=== PATIENT | male | born 1965 | race Caucasian/White ===

== ENCOUNTER 2016-08-18 20:33 | Emergency (ER) | payer MEDICAID ==
[2016-08-18 20:59] VITALS: BP 134/83
--- NOTE | 2016-08-18 22:27 | EDM.PDOC ---
[id number] SURGERY 08/09/16 Time Seen by Provider: 08/18/16 22:05 Source of Information: Reports: Patient, Family History Limitations: Reports: No limitations - History of Present Illness INITIAL COMMENTS - FREE TEXT/NARRATIVE: 50-year-old male who is in to check on some postoperative leakage of his incision. It's been occurring for the last 12 hours, serosanguineous and nontender. He is running a low-grade fever although he has no chills. He also had a recurrence of a small pustule on his perineum that recently drained and he has a history of these recurring. Onset: gradual Severity: mild Associated Symptoms: Reports: fever/chills. Denies: cough, nausea/vomiting, shortness of breath - Related Data Allergies Allergy/AdvReac Type Severity Reaction Status Date / Time codeine Allergy Seizure Verified 08/18/16 21:49 [From Tylenol-Codeine #3] Home Meds: Home Meds Amoxicillin/Clavulanate K [Augmentin 875 MG] 1 tab PO BID #20 tablet 02/01/16 [ Rx] HYDROmorphone [Dilaudid] 2 - 4 mg PO Q4H PRN #50 tablet 02/01/16 [Rx] Lactobacillus Rhamnosus GG [Culturelle] 1 cap PO BID cap 02/01/16 [Rx] Docusate Sodium [Colace] 100 mg PO DAILY 08/18/16 [History] Past Medical History Musculoskeletal History: Reports: Fracture Other Musculoskeletal History: right arm collar bone ribs Dermatologic History: Reports: Psoriasis - Infectious Disease History Infectious Disease History: Reports: Chicken pox - Past Surgical History GI Surgical History: Reports: Colostomy Social & Family History - Family History Family Medical History: Noncontributory - Tobacco Use Smoking Status *Q: Current Every Day Smoker Years of Tobacco use: 38 Packs/Tins Daily: 0.5 Second Hand Smoke Exposure: Yes - Caffeine Use Caffeine Use: Reports: Coffee, Energy drinks, Soda, Tea - Alcohol Use Days Per Week of Alcohol Use: 2 Number of Drinks Per Day: 2 Total Drinks Per Week: 4 - Recreational Drug Use Recreational Drug Use: No - Living Situation & Occupation Living situation: Reports: with significant other Occupation: employed (lives in [facility], works construction, 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[place].) ED ROS GENERAL - Review of Systems Review Of Systems: See Below Constitutional: Reports: fever (Measurement only, no symptoms) Respiratory: Reports: No Symptoms Cardiovascular: Reports: No symptoms GI/Abdominal: Denies: Abdominal pain Skin: Reports: other (Incision is healing nicely) ED EXAM, GENERAL - Physical Exam Exam: See Below Exam Limited By: No limitations General Appearance: alert, no apparent distress Respiratory/Chest: no respiratory distress, lungs clear Cardiovascular: regular rate, rhythm GI/Abdominal: other (A very small opening in the middle of the incision has some clear drainage. There is some slight erythema but no tenderness to palpation.) Course - Vital Signs Last Recorded V/S: Last Vital Signs Temp 99.9 F 08/18/16 20:57 Pulse 91 08/18/16 20:57 Resp 16 08/18/16 20:57 BP 134/83 08/18/16 20:57 Pulse Ox 93 L 08/18/16 20:57 - Re-Assessments/Exams Free Text/Narrative Re-Assessment/Exam: 08/18/16 22:25 Patient likely has a seroma draining, but with his recent small pustule in the perineum and his propensity to infection he'll be placed on Augmentin 875 twice daily until his recheck next week. He can return sooner if worsening or concerns. Departure - Departure Time of Disposition: 22:50 Disposition: Home, Self-Care 01 Condition: good Clinical Impression: Postoperative seroma of skin Qualifiers: Procedure type: non-dermatologic Qualified Code(s): L76.34 - Postprocedural seroma of skin and subcutaneous tissue following other procedure Instructions: Seroma Referrals: Ishaan Hernandez MD [Primary Care Provider] - Forms: ED Department Discharge Care Plan Goals: Take Augmentin 875 mg twice daily with food as directed. Return if worsening such as increased pain, fever, or purulent drainage from your incision. Otherwise recheck next week as scheduled.
== END 2016-08-18 22:49 | disposition home or self-care (01) ==
LOC: JP.ED 20:33
DX: L76.34 Postprocedural seroma of skin and subcutaneous tissue following other procedure (principal); F17.210 Nicotine dependence, cigarettes, uncomplicated; Z79.899 Other long term (current) drug therapy; Z88.5 Allergy status to narcotic agent
CPT/HCPCS: 99283

== ENCOUNTER 2017-02-25 14:32 | Emergency (ER) | payer MEDICAID ==
[2017-02-25 14:45] VITALS: BP 155/95
--- NOTE | 2017-02-25 15:09 | EDM.PDOC ---
ED HPI GENERAL MEDICAL PROBLEM - General Chief Complaint: Skin Complaint Stated Complaint: BOIL Time Seen by Provider: 02/25/17 14:52 Source of Information: Reports: Patient, RN Notes Reviewed History Limitations: Reports: No Limitations - History of Present Illness INITIAL COMMENTS - FREE TEXT/NARRATIVE: 51-year-old gentleman presents emergency department day for evaluation of his hidradenitis, he is not had any fevers he has his usual flareups axilla and groin Right Lower Pelvic Pain Score (Numeric/FACES): 6 - Related Data Allergies Allergy/AdvReac Type Severity Reaction Status Date / Time codeine Allergy Seizure Verified 08/18/16 21:49 [From Tylenol-Codeine #3] Past Medical History Cardiovascular History: Reports: Heart Murmur Musculoskeletal History: Reports: Fracture Other Musculoskeletal History: right arm collar bone ribs Neurological History: Reports: Head Trauma Dermatologic History: Reports: Cellulitis, Psoriasis, Other (See Below) ( Hidradenitis) - Infectious Disease History Infectious Disease History: Reports: Chicken Pox - Past Surgical History GI Surgical History: Reports: Colostomy Dermatological Surgical History: Reports: Other (See Below) Social & Family History - Family History Family Medical History: Noncontributory - Tobacco Use Smoking Status *Q: Current Every Day Smoker Years of Tobacco use: 12 Packs/Tins Daily: 1 Second Hand Smoke Exposure: Yes - Caffeine Use Caffeine Use: Reports: Coffee, Soda - Alcohol Use Days Per Week of Alcohol Use: 2 Number of Drinks Per Day: 2 Total Drinks Per Week: 4 - Recreational Drug Use Recreational Drug Use: No - Living Situation & Occupation Living situation: Reports: with Significant Other Occupation: Employed ED ROS GENERAL - Review of Systems Review Of Systems: See Below Constitutional: Reports: No Symptoms Respiratory: Reports: No Symptoms Cardiovascular: Reports: No Symptoms Skin: Reports: Rash, Erythema, Lesions, Lumps ED EXAM, SKIN/RASH Exam: See Below Exam Limited By: No Limitations General Appearance: Alert, WD/WN, No Apparent Distress Skin: Erythema, Increased Warmth, Rash, Other (Hidradenitis) Course - Vital Signs Last Recorded V/S: Last Vital Signs Temp 98.4 F 02/25/17 14:44 Pulse 78 02/25/17 14:44 Resp 18 02/25/17 14:44 BP 155/95 H 02/25/17 14:44 Pulse Ox 96 02/25/17 14:44 Departure - Departure Time of Disposition: 15:08 Disposition: Home, Self-Care 01 Condition: Good Clinical Impression: Hidradenitis suppurativa - Discharge Information Referrals: Ishaan Hernandez MD [Primary Care Provider] - Additional Instructions: Take full course of antibiotics, please call to the assented clinic on Sunday for an appointment time with Dr. Vang on Sunday - Assessment/Plan Plan: Assessment Acuity = chronic Site and laterality = hidradenitis Etiology = unclear etiology Manifestations = none Location of injury = Home Lab values = none Plan Called discussed case with Dr. Vang general surgery he will be placed on Augmentin 875 by mouth twice a day 10 days he is to follow-up in clinic in 2 days for further evaluation Patient was in agreement with the plan all questions were answered, they were instructed to return to the emergency department or call for worsening symptoms. This note was dictated using [employer] voice recognition software please call with any questions.
== END 2017-02-25 15:15 | disposition home or self-care (01) ==
LOC: JP.ED 14:32
DX: L73.2 Hidradenitis suppurativa (principal); F17.210 Nicotine dependence, cigarettes, uncomplicated; L40.9 Psoriasis, unspecified; Z88.5 Allergy status to narcotic agent; Z93.3 Colostomy status
CPT/HCPCS: 99283

== ENCOUNTER 2017-05-19 18:55 | Emergency (ER) | payer MEDICAID ==
[2017-05-19 19:10] VITALS: BP 123/74
[2017-05-19] MEDS ORDERED: Lidocaine 1% with EPINEPHrine 1:100,000 50 ML MDV SUBCUT STA (19:31)
--- NOTE | 2017-05-19 19:46 | EDM.PDOC ---
ED HPI GENERAL MEDICAL PROBLEM - General Chief Complaint: Skin Complaint Stated Complaint: BOIL Time Seen by Provider: 05/19/17 19:20 Source of Information: Reports: Patient, Family, Old Records, RN Notes Reviewed History Limitations: Reports: No Limitations - History of Present Illness INITIAL COMMENTS - FREE TEXT/NARRATIVE: 51-year-old gentleman presents emergency department today with complaint of boil in his buttocks area he has a history of hidradenitis and has had difficulty with this for some time this will develop the last couple days rates pain 5 out of 10 there is some redness around the area he is not had any drainage no fevers left buttock Pain Score (Numeric/FACES): 8 - Related Data Allergies Allergy/AdvReac Type Severity Reaction Status Date / Time codeine Allergy Seizure Verified 05/19/17 19:07 [From Tylenol-Codeine #3] Home Meds: Home Meds NK [No Known Home Meds] 05/19/17 [History] Past Medical History Cardiovascular History: Reports: Heart Murmur Musculoskeletal History: Reports: Fracture Other Musculoskeletal History: right arm collar bone ribs Neurological History: Reports: Head Trauma Dermatologic History: Reports: Cellulitis, Psoriasis, Other (See Below) Other Dermatologic History: multiple boils - Infectious Disease History Infectious Disease History: Reports: Chicken Pox - Past Surgical History GI Surgical History: Reports: Colostomy, Other (See Below) Other GI Surgeries/Procedures: colostomy takedown Dermatological Surgical History: Reports: Plastic Surgical Reconstruction/Repair Social & Family History - Family History Family Medical History: Noncontributory - Tobacco Use Smoking Status *Q: Current Every Day Smoker Years of Tobacco use: 35 Packs/Tins Daily: 0.5 Second Hand Smoke Exposure: Yes - Caffeine Use Caffeine Use: Reports: Coffee - Alcohol Use Days Per Week of Alcohol Use: 2 Number of Drinks Per Day: 2 Total Drinks Per Week: 4 - Recreational Drug Use Recreational Drug Use: No - Living Situation & Occupation Living situation: Reports: with Significant Other Occupation: Employed ED ROS GENERAL - Review of Systems Review Of Systems: See Below Constitutional: Denies: Fever, Chills Respiratory: Reports: No Symptoms Cardiovascular: Reports: No Symptoms Skin: Reports: Erythema, Lesions, Lumps ED EXAM, SKIN/RASH Exam: See Below Text/Narrative:: Examination of the integument area he does have a large abscess formation on the left gluteal cleft is about the size of a golf ball there is no drainage at this time exquisitely tender to the touch warm to the touch ED SKIN PROCEDURES - I&D Site: Left gluteal cleft Skin Prep: Saline Local Anesthesia: Lidocaine: 1% with EPI Local Anesthetic Volume: 4cc Area Incised With: 11 Blade Drainage: Purulent, Large Amount Probed to Break Up Loculations: Yes Packed With: 1/2 in. Iodoform Sterile Dressing: Adhesive Dressing Complications: No Course - Vital Signs Last Recorded V/S: Last Vital Signs Temp 98.7 F 05/19/17 19:08 Pulse 104 H 05/19/17 19:08 Resp 18 05/19/17 19:08 BP 123/74 05/19/17 19:08 Pulse Ox 96 05/19/17 19:08 - Orders/Labs/Meds Meds: Medications Discontinued Medications Generic Name Dose Route Start Last Admin Trade Name Martha PRN Reason Stop Dose Admin Lidocaine/Epinephrine 20 ml 05/19/17 19:31 Xylocaine 1% With Epinephrine 1:100,000 SUBCUT 05/19/17 19:32 NOW STA Departure - Departure Time of Disposition: 19:45 Disposition: Home, Self-Care 01 Condition: Good Clinical Impression: Abscess Cellulitis Qualifiers: Site of cellulitis: buttock Qualified Code(s): L03.317 - Cellulitis of buttock - Discharge Information Referrals: Ishaan Hernandez MD [Primary Care Provider] - Additional Instructions: Take full course of antibiotics, use Percocet as needed for pain control, please call the clinic on Sunday for an appointment with Dr. Vang - Assessment/Plan Plan: Assessment Acuity = acute Site and laterality = left gluteal cleft abscess with local cellulitis Etiology = bacterial cause Manifestations = pain Location of injury = Home Lab values = none Plan The wound was packed with half-inch iodoform gauze estimate about 12 inches he is to follow-up with Dr. Vang general surgery on Sunday of next week, Percocet 5/325 one tab by mouth 3 times a day when necessary total #10 for pain Bactrim DS 1 tablet by mouth twice a day 10 days This note was dictated using [employer] voice recognition software please call with any questions on syntax or aaron.
== END 2017-05-19 19:53 | disposition home or self-care (01) ==
LOC: JP.ED 18:55
DX: L03.317 Cellulitis of buttock (principal); F17.210 Nicotine dependence, cigarettes, uncomplicated; Z88.5 Allergy status to narcotic agent
CPT/HCPCS: 10060; 10061; 99283-25

== ENCOUNTER 2017-12-05 14:05 | Inpatient (IN) | payer MEDICAID ==
[2017-12-05] MEDS ORDERED: Magnesium Hydroxide 400 MG/5 ML Susp 30 ML Cup PO PRN (14:50)
[2017-12-05] MEDS ORDERED: Sodium Chloride 0.9% 10 ML Syringe IV PRN (14:51)
[2017-12-05] MEDS: Ampicillin/Sulbactam Na 3 GM in Sodium Chloride 0.9% 100 ML IV SCH ×2 (16:24→21:11)
[2017-12-05] MEDS: Docusate Sodium 100 MG Cap PO SCH (20:40)
[2017-12-05] MEDS ORDERED: Diphtheria/Tetanus Toxoids,Adult (Td) 0.5 ML SDV IM ONE (21:15)
--- NOTE | 2017-12-05 21:19 | PCM.HP ---
H&P History of Present Illness - General Date of Service: 12/05/17 Admit Problem/Dx: Admission Diagnosis/Problem Admission Diagnosis/Problem Cellulitis Source of Information: Patient History Limitations: Reports: No Limitations - History of Present Illness Initial Comments - Free Text/Narative: This 52 year old white male has a history of severe groin hidradenitis suppurativa noted left upper leg pain about four days ago. Three days ago it became quite severe causing him to come to the walk in clinic two days ago. A small I & D was performed and he was started on Augmentin. He came to the walk in clinic again today with it getting worse. He has a large abscess with about 25 X 10 cm area of cellulitis on his posterior left upper leg. He underwent an I & D in the clinic with the wound packed with 1/2 inch Iodoform and admitted for IV antibiotics and to start local wound care tomorrow. He is afebrile. He has no groin pain. Onset of Symptoms: Reports: Gradual Symptom Onset Date: 12/01/17 Symptom Onset Time: 18:00 Duration of Symptoms: Reports: Day(s): Location: Reports: Lower Extremity, Left Quality: Reports: Burning, Sharp Severity: Severe Improves with: Reports: None Worsens with: Reports: Movement Associated Symptoms: Reports: No Other Symptoms - Related Data Allergies/Adverse Reactions: Allergies Allergy/AdvReac Type Severity Reaction Status Date / Time codeine Allergy Seizure Verified 05/19/17 19:07 [From Tylenol-Codeine #3] Home Medications: Home Meds NK [No Known Home Meds] 05/19/17 [History] Past Medical History Cardiovascular History: Reports: Heart Murmur Musculoskeletal History: Reports: Fracture Other Musculoskeletal History: right arm collar bone ribs Neurological History: Reports: Head Trauma Dermatologic History: Reports: Cellulitis, Psoriasis, Other (See Below) Other Dermatologic History: multiple boils - Infectious Disease History Infectious Disease History: Reports: Chicken Pox - Past Surgical History GI Surgical History: Reports: Colostomy, Other (See Below) Other GI Surgeries/Procedures: colostomy takedown Dermatological Surgical History: Reports: Plastic Surgical Reconstruction/Repair Social & Family History - Family History Family Medical History: Noncontributory GI: Reports: Cirrhosis Oncologic: Reports: Bone, Brain, Leukemia, Lung - Tobacco Use Smoking Status *Q: Current Every Day Smoker Years of Tobacco use: 40 Packs/Tins Daily: 0.5 Used Tobacco, but Quit: No Second Hand Smoke Exposure: No - Caffeine Use Caffeine Use: Reports: Coffee - Recreational Drug Use Recreational Drug Use: No - Living Situation & Occupation Living situation: Reports: with Significant Other Occupation: Employed H&P Review of Systems - Review of Systems: Review Of Systems: See Below General: Reports: Other (Left upper leg pain. ) HEENT: Reports: No Symptoms Pulmonary: Reports: No Symptoms Cardiovascular: Reports: No Symptoms Gastrointestinal: Reports: No Symptoms Genitourinary: Reports: No Symptoms Musculoskeletal: Reports: No Symptoms Skin: Reports: Erythema (5 cm abscess with cellulits 25 x 10 cm left upper posterior leg. ) Psychiatric: Reports: No Symptoms Neurological: Reports: No Symptoms Hematologic/Lymphatic: Reports: No Symptoms Immunologic: Reports: No Symptoms Exam - Exam Exam: See Below - Vital Signs Vital Signs: Last Vital Signs Temp 99.3 F 12/05/17 19:21 Pulse 70 12/05/17 19:21 Resp 16 12/05/17 19:21 BP 117/68 12/05/17 19:21 Pulse Ox 96 12/05/17 19:21 Weight: 238 lb 12.8 oz - Exam General: Alert, Oriented, Cooperative, Mild Distress Neck: Supple Lungs: Clear to Auscultation, Normal Respiratory Effort Cardiovascular: Regular Rate, Regular Rhythm GI/Abdominal Exam: Normal Bowel Sounds, Soft, Non-Tender Back Exam: Normal Inspection Extremities: Mottled (25 x 10 cm cellulitis with associated abscess left posterior upper leg. ), Redness, Other (No lymphadenopathy. ) Skin: Warm, Dry, Other (Left upper leg cellulitis with abscess) Neuro Extensive - Mental Status: Alert, Oriented x3, Normal Mood/Affect, Normal Cognition Psychiatric: Alert, Normal Affect, Normal Mood - Patient Data Lab Results Last 24 hrs: Laboratory Results - last 24 hr 12/05/17 12/05/17 Range/Units 15:00 15:00 WBC 16.5 H (4.5-11.0) K/uL RBC 4.74 (4.30-5.90) M/uL Hgb 14.9 (12.0-15.0) g/dL Hct 44.4 (40.0-54.0) % MCV 94 (80-98) fL MCH 31 (27-31) pg MCHC 34 (32-36) % Plt Count 238 (150-400) K/uL Neut % (Auto) 76 H (36-66) % Lymph % (Auto) 14 L (24-44) % [place] % (Auto) 9 H (2-6) % Eos % (Auto) 1 L (2-4) % Baso % (Auto) 0 (0-1) % Sodium 138 L (140-148) mmol/L Potassium 4.0 (3.6-5.2) mmol/L Chloride 100 (100-108) mmol/L Carbon Dioxide 26 (21-32) mmol/L Anion Gap 16.0 H (5.0-14.0) mmol/L BUN 10 (7-18) mg/dL Creatinine 1.0 (0.8-1.3) mg/dL Est Cr Clr Drug Dosing 92.03 mL/min Estimated GFR (MDRD) > 60 (>60) Glucose 108 H (74-106) mg/dL Calcium 8.3 L (8.5-10.1) mg/dL Result Diagrams: 12/05/17 15:00 12/05/17 15:00 - Problem List (1) Abscess SNOMED Code(s): 529297079 ICD Code: L02.91 - CUTANEOUS ABSCESS, UNSPECIFIED Status: Acute Current Visit: No (2) Cellulitis SNOMED Code(s): 978119126 ICD Code: L03.90 - CELLULITIS, UNSPECIFIED Status: Acute Current Visit: No Qualifiers: Site of cellulitis: buttock Qualified Code(s): L03.317 - Cellulitis of buttock Problem List Initiated/Reviewed/Updated: Yes Orders Last 24hrs: Active Orders 24 hr Category Date Time Status Admission Status [Patient Status] [ADT] Routine ADT 12/05/17 13:10 Active Activity as Tolerated [RC] .Routine Care 12/05/17 14:51 Active Vital Signs [RC] Q4H Care 12/05/17 14:48 Active Regular Diet [DIET] Diet 12/05/17 Dinner Active CBC WITH AUTO DIFF [HEME] Routine Lab 12/06/17 05:11 Ordered Acetaminophen/HYDROcodone [[place] 325-5 MG] Med 12/05/17 14:52 Active 1 - 2 tab PO Q4H PRN Ampicillin/Sulbactam Na [Unasyn] 3 gm Med 12/05/17 16:00 Active Sodium Chloride 0.9% [Normal Saline] 100 ml IV Q6H Docusate Sodium [Colace] Med 12/05/17 21:00 Active 100 mg PO BID Magnesium Hydroxide [Milk of Magnesia] Med 12/05/17 14:50 Active 30 ml PO BID PRN Sodium Chloride 0.9% [Saline Flush] Med 12/05/17 14:51 Active 10 ml IV ASDIRECTED PRN Medication Orders Hydrocodone Bitart/Acetaminophen ([place] 325-5 Mg) 1 - 2 tab PO Q4H PRN PRN Reason: PAIN Docusate Sodium (Colace) 100 mg PO BID [facility] Last Admin: 12/05/17 20:40 Dose: 100 mg Ampicillin Sodium/Sulbactam (Sodium 3 gm/ Sodium Chloride) 100 mls @ 200 mls/ hr IV Q6H [facility] Last Admin: 12/05/17 21:11 Dose: 200 mls/hr Admin: 12/05/17 16:24 Dose: 200 mls/hr Magnesium Hydroxide (Milk Of Magnesia) 30 ml PO BID PRN PRN Reason: CONSTIPATION Sodium Chloride (Saline Flush) 10 ml IV ASDIRECTED PRN PRN Reason: LINE FLUSH Assessment/Plan Comment:: Left upper posterior leg abscess with 25 x 10 cm area of cellulitis, failed outpatient treatment. He is afebrile. WBC 16,500. Gram stain of purulent material in abscess returns Gram + cocci and Gram - rods. Patient underwent I & D in clinic and is admitted for IV antibiotics and to start local wound care tomorrow.
[2017-12-05] MEDS: Acetaminophen/HYDROcodone 325-5 MG Tab PO PRN (23:15)
[2017-12-06] MEDS: Ampicillin/Sulbactam Na 3 GM in Sodium Chloride 0.9% 100 ML IV SCH ×4 (04:11→22:20)
--- NOTE | 2017-12-06 06:33 | PCM.SURGPN ---
- General Info Date of Service: 12/06/17 Date of Surgery/Procedure: 12/05/17 POD#: 1 Post-Op Diagnosis: Left upper leg abscess with cellulitis Functional Status: Reports: Pain Controlled, Tolerating Diet, Ambulating, Urinating - Review of Systems General: Reports: No Symptoms HEENT: Reports: No Symptoms Pulmonary: Reports: No Symptoms Cardiovascular: Reports: No Symptoms Gastrointestinal: Reports: No Symptoms Genitourinary: Reports: No Symptoms Musculoskeletal: Reports: No Symptoms Skin: Reports: Other (Pain is much better than prior to abscess drainage. ) Neurological: Reports: No Symptoms Psychiatric: Reports: No Symptoms - Patient Data Vitals - Most Recent: Last Vital Signs Temp 97.3 F 12/06/17 01:59 Pulse 57 L 12/06/17 01:59 Resp 16 12/06/17 01:59 BP 104/85 12/06/17 01:59 Pulse Ox 94 L 12/06/17 01:59 Weight - Most Recent: 238 lb 12.8 oz I&O - Last 24 Hours: Intake & Output 12/05/17 12/05/17 12/06/17 14:59 22:59 06:59 Intake Total 540 1100 Balance 540 1100 Lab Results Last 24 Hrs: Laboratory Results - last 24 hr 12/05/17 12/05/17 12/06/17 Range/Units 15:00 15:00 04:23 WBC 16.5 H 13.5 H (4.5-11.0) K/uL RBC 4.74 4.51 (4.30-5.90) M/uL Hgb 14.9 13.7 (12.0-15.0) g/dL Hct 44.4 42.5 (40.0-54.0) % MCV 94 94 (80-98) fL MCH 31 30 (27-31) pg MCHC 34 32 (32-36) % Plt Count 238 231 (150-400) K/uL Neut % (Auto) 76 H 67 H (36-66) % Lymph % (Auto) 14 L 21 L (24-44) % [place] % (Auto) 9 H 10 H (2-6) % Eos % (Auto) 1 L 2 (2-4) % Baso % (Auto) 0 0 (0-1) % Sodium 138 L (140-148) mmol/L Potassium 4.0 (3.6-5.2) mmol/L Chloride 100 (100-108) mmol/L Carbon Dioxide 26 (21-32) mmol/L Anion Gap 16.0 H (5.0-14.0) mmol/L BUN 10 (7-18) mg/dL Creatinine 1.0 (0.8-1.3) mg/dL Est Cr Clr Drug Dosing 92.03 mL/min Estimated GFR (MDRD) > 60 (>60) Glucose 108 H (74-106) mg/dL Calcium 8.3 L (8.5-10.1) mg/dL Med Orders - Current: Current Medications Hydrocodone Bitart/Acetaminophen ([place] 325-5 Mg) 1 - 2 tab PO Q4H PRN PRN Reason: PAIN Last Admin: 12/05/17 23:15 Dose: 2 tab Docusate Sodium (Colace) 100 mg PO BID [facility] Last Admin: 12/05/17 20:40 Dose: 100 mg Ampicillin Sodium/Sulbactam (Sodium 3 gm/ Sodium Chloride) 100 mls @ 200 mls/ hr IV Q6H [facility] Last Admin: 12/06/17 04:11 Dose: 200 mls/hr Magnesium Hydroxide (Milk Of Magnesia) 30 ml PO BID PRN PRN Reason: CONSTIPATION Sodium Chloride (Saline Flush) 10 ml IV ASDIRECTED PRN PRN Reason: LINE FLUSH Discontinued Medications Tetanus/Diphtheria Toxoids (Tenivac) 0.5 ml IM .ONCE ONE Stop: 12/05/17 21:16 Last Admin: 12/05/17 21:57 Dose: 0.5 ml - Exam Wound/Incisions: Healing Well, Erythema Improving General: Alert, Oriented, Cooperative, No Acute Distress Lungs: Clear to Auscultation, Normal Respiratory Effort Cardiovascular: Regular Rate, Regular Rhythm GI/Abdominal Exam: Normal Bowel Sounds Extremities: Other (Cellulitis is improving. Abscess cavity open and clean. ) Skin: Warm, Dry Neurological: No New Focal Deficit Psy/Mental Status: Alert, Normal Affect, Normal Mood - Problem List & Annotations (1) Abscess SNOMED Code(s): 600688392 Code(s): L02.91 - CUTANEOUS ABSCESS, UNSPECIFIED Status: Acute Current Visit: No (2) Cellulitis SNOMED Code(s): 403270977 Code(s): L03.90 - CELLULITIS, UNSPECIFIED Status: Acute Current Visit: No Qualifiers: Site of cellulitis: buttock Qualified Code(s): L03.317 - Cellulitis of buttock - Problem List Review Problem List Initiated/Reviewed/Updated: Yes - My Orders Last 24 Hours: Active Orders 24 hr Category Date Time Status Admission Status [Patient Status] [ADT] Routine ADT 12/05/17 13:10 Active Activity as Tolerated [RC] .Routine Care 12/05/17 14:51 Active Vital Signs [RC] Q4H Care 12/05/17 14:48 Active Wound Care [RC] Q12H Care 12/06/17 06:26 Ordered Regular Diet [DIET] Diet 12/05/17 Dinner Active Acetaminophen/HYDROcodone [[place] 325-5 MG] Med 12/05/17 14:52 Active 1 - 2 tab PO Q4H PRN Ampicillin/Sulbactam Na [Unasyn] 3 gm Med 12/05/17 16:00 Active Sodium Chloride 0.9% [Normal Saline] 100 ml IV Q6H Docusate Sodium [Colace] Med 12/05/17 21:00 Active 100 mg PO BID Magnesium Hydroxide [Milk of Magnesia] Med 12/05/17 14:50 Active 30 ml PO BID PRN Sodium Chloride 0.9% [Saline Flush] Med 12/05/17 14:51 Active 10 ml IV ASDIRECTED PRN SCD [Sequential Compression Device] [OM.PC] Routine Oth 12/05/17 22:52 Ordered Medication Orders Hydrocodone Bitart/Acetaminophen ([place] 325-5 Mg) 1 - 2 tab PO Q4H PRN PRN Reason: PAIN Last Admin: 12/05/17 23:15 Dose: 2 tab Docusate Sodium (Colace) 100 mg PO BID [facility] Last Admin: 12/05/17 20:40 Dose: 100 mg Ampicillin Sodium/Sulbactam (Sodium 3 gm/ Sodium Chloride) 100 mls @ 200 mls/ hr IV Q6H [facility] Last Admin: 12/06/17 04:11 Dose: 200 mls/hr Admin: 12/05/17 21:11 Dose: 200 mls/hr Admin: 12/05/17 16:24 Dose: 200 mls/hr Magnesium Hydroxide (Milk Of Magnesia) 30 ml PO BID PRN PRN Reason: CONSTIPATION Sodium Chloride (Saline Flush) 10 ml IV ASDIRECTED PRN PRN Reason: LINE FLUSH - Assessment Assessment (Free Text/Narrative):: His abscess with cellulitis is improving. - Plan Plan (Free Text/Narrative):: Begin BID local wound care. Continue Unasyn. May shower.
[2017-12-06] MEDS: Acetaminophen/HYDROcodone 325-5 MG Tab PO PRN ×2 (07:09→20:18)
[2017-12-06] MEDS: Docusate Sodium 100 MG Cap PO SCH ×2 (09:04→22:21)
[2017-12-07] MEDS: Ampicillin/Sulbactam Na 3 GM in Sodium Chloride 0.9% 100 ML IV SCH ×4 (04:13→21:21)
[2017-12-07] MEDS: Acetaminophen/HYDROcodone 325-5 MG Tab PO PRN ×2 (07:53→21:18)
[2017-12-07] MEDS: Docusate Sodium 100 MG Cap PO SCH ×2 (10:33→21:21)
--- NOTE | 2017-12-07 11:42 | PCM.SURGPN ---
- General Info Date of Service: 12/07/17 Date of Surgery/Procedure: 12/05/17 POD#: 2 Post-Op Diagnosis: Left upper leg abscess with cellulitis Functional Status: Reports: Pain Controlled, Tolerating Diet, Ambulating, Urinating - Review of Systems General: Reports: No Symptoms HEENT: Reports: No Symptoms Pulmonary: Reports: No Symptoms Cardiovascular: Reports: No Symptoms Gastrointestinal: Reports: No Symptoms Genitourinary: Reports: No Symptoms Musculoskeletal: Reports: No Symptoms Skin: Reports: No Symptoms Neurological: Reports: No Symptoms Psychiatric: Reports: No Symptoms - Patient Data Vitals - Most Recent: Last Vital Signs Temp 97.6 F 12/07/17 07:33 Pulse 63 12/07/17 07:33 Resp 16 12/07/17 07:33 BP 110/54 L 12/07/17 07:33 Pulse Ox 94 L 12/07/17 07:33 Weight - Most Recent: 238 lb 12.805 oz I&O - Last 24 Hours: Intake & Output 12/06/17 12/07/17 12/07/17 22:59 06:59 14:59 Intake Total 700 1360 Balance 700 1360 Med Orders - Current: Current Medications Hydrocodone Bitart/Acetaminophen (Faxon 325-5 Mg) 1 - 2 tab PO Q4H PRN PRN Reason: PAIN Last Admin: 12/07/17 07:53 Dose: 2 tab Docusate Sodium (Colace) 100 mg PO BID [facility] Last Admin: 12/07/17 10:33 Dose: Not Given Ampicillin Sodium/Sulbactam (Sodium 3 gm/ Sodium Chloride) 100 mls @ 200 mls/ hr IV Q6H [facility] Last Admin: 12/07/17 10:33 Dose: 200 mls/hr Magnesium Hydroxide (Milk Of Magnesia) 30 ml PO BID PRN PRN Reason: CONSTIPATION Sodium Chloride (Saline Flush) 10 ml IV ASDIRECTED PRN PRN Reason: LINE FLUSH Discontinued Medications Tetanus/Diphtheria Toxoids (Tenivac) 0.5 ml IM .ONCE ONE Stop: 12/05/17 21:16 Last Admin: 12/05/17 21:57 Dose: 0.5 ml - Exam Wound/Incisions: Healing Well, No Drainage, Erythema Improving General: Alert, Oriented Lungs: Clear to Auscultation, Normal Respiratory Effort Cardiovascular: Regular Rate, Regular Rhythm GI/Abdominal Exam: Normal Bowel Sounds, Soft, Non-Tender Extremities: Other (Cellulitis almost gone. Abscess incision open and clean) Skin: Warm, Dry Neurological: No New Focal Deficit Psy/Mental Status: Alert, Normal Affect, Normal Mood - Problem List & Annotations (1) Abscess SNOMED Code(s): 351138954 Code(s): L02.91 - CUTANEOUS ABSCESS, UNSPECIFIED Status: Resolved Current Visit: No (2) Cellulitis SNOMED Code(s): 083415255 Code(s): L03.90 - CELLULITIS, UNSPECIFIED Status: Resolved Current Visit : No Qualifiers: Site of cellulitis: buttock Qualified Code(s): L03.317 - Cellulitis of buttock - Problem List Review Problem List Initiated/Reviewed/Updated: Yes - My Orders Last 24 Hours: Medication Orders Hydrocodone Bitart/Acetaminophen (Faxon 325-5 Mg) 1 - 2 tab PO Q4H PRN PRN Reason: PAIN Last Admin: 12/07/17 07:53 Dose: 2 tab Admin: 12/06/17 20:18 Dose: 2 tab Admin: 12/06/17 07:09 Dose: 2 tab Admin: 12/05/17 23:15 Dose: 2 tab Docusate Sodium (Colace) 100 mg PO BID [facility] Last Admin: 12/07/17 10:33 Dose: Not Given Admin: 12/06/17 22:21 Dose: 100 mg Admin: 12/06/17 09:04 Dose: 100 mg Admin: 12/05/17 20:40 Dose: 100 mg Ampicillin Sodium/Sulbactam (Sodium 3 gm/ Sodium Chloride) 100 mls @ 200 mls/ hr IV Q6H [facility] Last Admin: 12/07/17 10:33 Dose: 200 mls/hr Admin: 12/07/17 04:13 Dose: 200 mls/hr Admin: 12/06/17 22:20 Dose: 200 mls/hr Admin: 12/06/17 15:54 Dose: 200 mls/hr Admin: 12/06/17 10:24 Dose: 200 mls/hr Admin: 12/06/17 04:11 Dose: 200 mls/hr Admin: 12/05/17 21:11 Dose: 200 mls/hr Admin: 12/05/17 16:24 Dose: 200 mls/hr Magnesium Hydroxide (Milk Of Magnesia) 30 ml PO BID PRN PRN Reason: CONSTIPATION Sodium Chloride (Saline Flush) 10 ml IV ASDIRECTED PRN PRN Reason: LINE FLUSH - Assessment Assessment (Free Text/Narrative):: Improving. Waiting for culture results. Undergoing local wound care. - Plan Plan (Free Text/Narrative):: Continue present management. Hope to discharge tomorrow.
[2017-12-07] MEDS ORDERED: Ibuprofen 400 MG Tab PO PRN (15:37)
[2017-12-08] MEDS: Ampicillin/Sulbactam Na 3 GM in Sodium Chloride 0.9% 100 ML IV SCH ×2 (04:01→10:44)
[2017-12-08 08:04] VITALS: BP 122/72
[2017-12-08] MEDS: Docusate Sodium 100 MG Cap PO SCH (09:30)
== END 2017-12-08 13:05 | disposition home or self-care (01) | DRG 603 ==
LOC: JP.MS 14:05
PROVIDERS: ADMIT Surgery; ATTEND Surgery
PROC: 3E0234Z Introduction of Serum, Toxoid and Vaccine into Muscle, Percutaneous Approach (ICD-10-PCS; principal; 2017-12-05)
DX: L03.116 Cellulitis of left lower limb (principal); L02.416 Cutaneous abscess of left lower limb; L73.2 Hidradenitis suppurativa; Z88.6 Allergy status to analgesic agent; R01.1 Cardiac murmur, unspecified; L40.9 Psoriasis, unspecified; F17.200 Nicotine dependence, unspecified, uncomplicated; B96.89 Other specified bacterial agents as the cause of diseases classified elsewhere; Z23 Encounter for immunization
CPT/HCPCS: 36415; 80048; 85025; 90471; 90714; A9270-GY; J0295; J7030

== ENCOUNTER 2020-02-23 21:06 | Emergency (ER) | payer BC, OTHER ==
[2020-02-23 21:23] VITALS: BP 138/85; PULSE 66
--- NOTE | 2020-02-23 21:46 | EDM.PDOC ---
ED HPI GENERAL MEDICAL PROBLEM - General Chief Complaint: Abdominal Pain Stated Complaint: ABD PAIN LT SIDE Time Seen by Provider: 02/23/20 21:39 Source of Information: Reports: Patient History Limitations: Reports: No Limitations - History of Present Illness INITIAL COMMENTS - FREE TEXT/NARRATIVE: pt has been having left sided abdomanal pain. He had diarrhea yesterday about 7 stools . He did not have the pain until today. He states the pain started midday and has been persistent. It started in the flank and moved forward. Onset: Today Duration: Hour(s): Location: Reports: Abdomen Associated Symptoms: Reports: Cough, Other (pt has had a cough for about 2 weeks. Several of the family members have also had a cough, Some of the family has been covid tested and were neg. ) Left Abdominal Pain Score (Numeric/FACES): 6 - Related Data Allergies Allergy/AdvReac Type Severity Reaction Status Date / Time codeine Allergy Seizure Verified 02/23/20 21:19 [From Tylenol-Codeine #3] Home Meds: Home Meds NK [No Known Home Meds] 05/19/17 [History] Past Medical History HEENT History: Reports: Impaired Vision Cardiovascular History: Reports: Heart Murmur Musculoskeletal History: Reports: Back Pain, Chronic, Fracture Other Musculoskeletal History: right arm collar bone ribs Neurological History: Reports: Head Trauma, Migraines, Seizure Dermatologic History: Reports: Cellulitis, Psoriasis, Other (See Below) Other Dermatologic History: multiple boils - Infectious Disease History Infectious Disease History: Reports: Chicken Pox - Past Surgical History GI Surgical History: Reports: Colostomy, Other (See Below) Other GI Surgeries/Procedures: colostomy takedown Dermatological Surgical History: Reports: Plastic Surgical Reconstruction/Repair Social & Family History - Family History Family Medical History: Noncontributory GI: Reports: Cirrhosis Oncologic: Reports: Bone, Brain, Leukemia, Lung - Tobacco Use Smoking Status *Q: Current Every Day Smoker Years of Tobacco use: 40 Packs/Tins Daily: 0.5 - Caffeine Use Caffeine Use: Reports: Coffee - Recreational Drug Use Recreational Drug Use: Yes - Living Situation & Occupation Living situation: Reports: with Significant Other Occupation: Employed ED ROS GENERAL - Review of Systems Review Of Systems: See Below Constitutional: Reports: Chills, Fatigue, Decreased Appetite HEENT: Reports: Eye Discharge, Other ( some drainage down the back of his throat. ) Respiratory: Reports: Cough Cardiovascular: Reports: No Symptoms Endocrine: Reports: No Symptoms GI/Abdominal: Reports: Abdominal Pain, Other (pt has pain ion the left flasnk and anterior ) : Reports: No Symptoms Musculoskeletal: Reports: No Symptoms Skin: Reports: No Symptoms Neurological: Reports: No Symptoms Psychiatric: Reports: Agitation ED EXAM, GI/ABD - Physical Exam Exam: See Below Text/Narrative:: pt arrived with pain in the left abdoman. He has a history of nonbloody diarrhea yesterday but no pain. Exam Limited By: No Limitations General Appearance: Alert, Anxious, Moderate Distress Ears: Normal TMs Nose: Normal Inspection Throat/Mouth: Normal Inspection Head: Atraumatic Neck: Normal Inspection Respiratory/Chest: No Respiratory Distress Cardiovascular: Regular Rate, Rhythm GI/Abdominal Exam: Tender, Other (pt is not guarded. ) (Male) Exam: Deferred Rectal (Males) Exam: Deferred, Other (pt has had a previous colostomy) Back Exam: Normal Inspection Course - Vital Signs Last Recorded V/S: Last Vital Signs Temp 35.9 C L 02/23/20 21:23 Pulse 66 02/23/20 21:23 Resp 19 02/23/20 21:23 BP 138/85 02/23/20 21:23 Pulse Ox 98 02/23/20 21:23 - Orders/Labs/Meds Orders: Active Orders 24 hr Category Date Time Status CORONAVIRUS COVID-19, KISHORE Stat Lab 02/23/20 23:51 Ordered Labs: Laboratory Tests 02/23/20 02/23/20 02/23/20 Range/Units 21:54 21:54 21:54 WBC 9.7 (4.5-11.0) K/uL RBC 4.61 (4.30-5.90) M/uL Hgb 14.3 (12.0-15.0) g/dL Hct 44.4 (40.0-54.0) % MCV 96 (80-98) fL MCH 31 (27-31) pg MCHC 32 (32-36) % Plt Count 240 (150-400) K/uL Neut % (Auto) 69 H (36-66) % Lymph % (Auto) 22 L (24-44) % [place] % (Auto) 6 (2-6) % Eos % (Auto) 2 (2-4) % Baso % (Auto) 0 (0-1) % Sodium 139 L (140-148) mmol/L Potassium 4.3 (3.6-5.2) mmol/L Chloride 104 (100-108) mmol/L Carbon Dioxide 27 (21-32) mmol/L Anion Gap 12.3 (5.0-14.0) mmol/L BUN 13 (7-18) mg/dL Creatinine 1.0 (0.8-1.3) mg/dL Est Cr Clr Drug Dosing 57.81 mL/min Estimated GFR (MDRD) > 60 (>60) Glucose 93 (74-106) mg/dL Calcium 8.4 L (8.5-10.1) mg/dL Total Bilirubin 0.3 (0.2-1.0) mg/dL AST 17 (15-37) U/L ALT 26 (12-78) U/L Alkaline Phosphatase 78 (46-116) U/L C-Reactive Protein 0.11 (0.0-0.3) mg/dL Total Protein 6.8 (6.4-8.2) g/dL Albumin 3.7 (3.4-5.0) g/dL Globulin 3.1 (2.3-3.5) g/dL Albumin/Globulin Ratio 1.2 (1.2-2.2) Urine Color (YELLOW) Urine Appearance (CLEAR) Urine pH (5.0-8.0) Ur Specific [place] (1.008-1.030) Urine Protein (NEGATIVE) mg/dL Urine Glucose (UA) (NEGATIVE) mg/dL Urine Ketones (NEGATIVE) mg/dL Urine Occult Blood (NEGATIVE) Urine Nitrite (NEGATIVE) Urine Bilirubin (NEGATIVE) Urine Urobilinogen (0.2-1.0) EU/dL Ur Leukocyte Esterase (NEGATIVE) Urine RBC (0-5) Urine WBC (0-5) Ur Epithelial Cells Amorphous Sediment Urine Bacteria Urine Mucus 02/23/20 Range/Units 22:19 WBC (4.5-11.0) K/uL RBC (4.30-5.90) M/uL Hgb (12.0-15.0) g/dL Hct (40.0-54.0) % MCV (80-98) fL MCH (27-31) pg MCHC (32-36) % Plt Count (150-400) K/uL Neut % (Auto) (36-66) % Lymph % (Auto) (24-44) % [place] % (Auto) (2-6) % Eos % (Auto) (2-4) % Baso % (Auto) (0-1) % Sodium (140-148) mmol/L Potassium (3.6-5.2) mmol/L Chloride (100-108) mmol/L Carbon Dioxide (21-32) mmol/L Anion Gap (5.0-14.0) mmol/L BUN (7-18) mg/dL Creatinine (0.8-1.3) mg/dL Est Cr Clr Drug Dosing mL/min Estimated GFR (MDRD) (>60) Glucose (74-106) mg/dL Calcium (8.5-10.1) mg/dL Total Bilirubin (0.2-1.0) mg/dL AST (15-37) U/L ALT (12-78) U/L Alkaline Phosphatase (46-116) U/L C-Reactive Protein (0.0-0.3) mg/dL Total Protein (6.4-8.2) g/dL Albumin (3.4-5.0) g/dL Globulin (2.3-3.5) g/dL Albumin/Globulin Ratio (1.2-2.2) Urine Color Yellow (YELLOW) Urine Appearance Clear (CLEAR) Urine pH 6.0 (5.0-8.0) Ur Specific [place] 1.020 (1.008-1.030) Urine Protein Negative (NEGATIVE) mg/dL Urine Glucose (UA) Negative (NEGATIVE) mg/dL Urine Ketones Negative (NEGATIVE) mg/dL Urine Occult Blood Negative (NEGATIVE) Urine Nitrite Negative (NEGATIVE) Urine Bilirubin Negative (NEGATIVE) Urine Urobilinogen 0.2 (0.2-1.0) EU/dL Ur Leukocyte Esterase Negative (NEGATIVE) Urine RBC Not seen (0-5) Urine WBC Not seen (0-5) Ur Epithelial Cells Rare Amorphous Sediment Few Urine Bacteria Not seen Urine Mucus Not seen Meds: Medications Discontinued Medications Generic Name Dose Route Start Last Admin Trade Name Freq PRN Reason Stop Dose Admin Sodium Chloride 85 mls @ 3.5 mls/sec 02/23/20 22:45 02/23/20 22:49 Normal Saline IV 02/23/20 22:46 3.5 mls/sec ASDIRECTED DONYA Administration Iopamidol 150 ml 02/23/20 22:45 02/23/20 22:48 Isovue-300 (61%) IV 150 ml . DIRECTED DONYA Administration Sodium Chloride 10 ml 02/23/20 22:32 02/23/20 22:48 Saline Flush FLUSH 02/23/20 22:33 10 ml ONETIME ONE Administration - Re-Assessments/Exams Free Text/Narrative Re-Assessment/Exam: 02/23/20 23:52 pt had a normal wbc. He is still having lopw grade fever. He has had a contact with a positive covid. He has had a cough and he has now had diarrhea yesterday. He had a cat scan of the abdoman which was neg. His prostate was found to be mildly enlarged. Departure - Departure Time of Disposition: 23:54 Disposition: Home, Self-Care 01 Condition: Fair Clinical Impression: Viral illness, Dehydration - Discharge Information Referrals: Ishaan Hernandez MD [Primary Care Provider] - Forms: ED Department Discharge Care Plan Goals: push fluids, stick with very lite foods, rtc if pain should get worse. Will notify of the Covid test result. Sepsis Event Note (ED) - Evaluation Sepsis Screening Result: No Definite Risk - Focused Exam Vital Signs: Vital Signs Temp Pulse Resp BP Pulse Ox 02/23/20 21:23 35.9 C L 66 19 138/85 98 02/23/20 21:22 35.9 C L 66 19 138/85 98 - My Orders Last 24 Hours: My Active Orders 02/23/20 23:51 CORONAVIRUS COVID-19, KISHORE Stat - Assessment/Plan Last 24 Hours: My Active Orders 02/23/20 23:51 CORONAVIRUS COVID-19, KISHORE Stat
[2020-02-23] MEDS: Sodium Chloride 0.9% 10 ML Syringe FLUSH ONE ×2 (22:37→22:48)
[2020-02-23] MEDS ORDERED: Iopamidol 612 MG/ML 150 ML Bottle IV SCH (22:45)
--- NOTE | 2020-02-23 23:31 | CRLCT ---
INDICATION: left sided abdominal pain CT ABDOMEN AND PELVIS WITH CONTRAST TECHNIQUE: Multidetector CT imaging was performed through the abdomen and pelvis following intravenous contrast administration using 150 mL Isovue-300. Coronal and sagittal reconstructions were generated. COMPARISON: None. FINDINGS: Lower chest: Minimal bibasilar lung atelectasis. Liver: Within normal limits. Gallbladder and bile ducts: No gallbladder wall thickening or calcified gallstones. No biliary dilation identified. Pancreas: Unremarkable. Spleen: Normal. Adrenals: No nodules or masses. Kidneys, ureters, and urinary bladder: No renal masses or hydronephrosis. Mild diffuse wall thickening of the urinary bladder. Gastrointestinal tract and abdominal wall: Normal caliber bowel without wall thickening or obstruction. The appendix is normal. There are postoperative changes of partial sigmoid colon resection. Postoperative changes are noted in the anterior abdominal wall over the left lower quadrant. Vascular structures: Normal caliber abdominal aorta with mild aortoiliac atherosclerotic calcifications. Peritoneum: No free air, abscess, or significant free fluid. Lymph nodes: No pathologically enlarged nodes identified. Reproductive organs: Mild prostatomegaly. Bones: Minor spinal degenerative changes. IMPRESSION: 1. No definite acute abnormality identified. No specific cause for the patient`s symptoms is demonstrated. 2. Status post partial sigmoid colon resection. 3. Mild diffuse wall thickening of the urinary bladder, most likely due to chronic outlet obstruction. 4. Mild prostatomegaly. 5. Nonacute additional findings as detailed above. ROSARIO ATWOOD MD [employer] Dictated by Jamar Atwood MD @ 02/23/2020 11:31:08 PM Dictated by: Jamar Atwood MD @ 02/23/2020 23:31:25 (Electronically Signed)
== END 2020-02-24 00:03 | disposition home or self-care (01) ==
LOC: JP.ED 21:06
DX: B34.9 Viral infection, unspecified (principal); E86.0 Dehydration; F17.210 Nicotine dependence, cigarettes, uncomplicated; Z88.5 Allergy status to narcotic agent; Z20.828 Contact with and (suspected) exposure to other viral communicable diseases
CPT/HCPCS: 36415; 74177; 80053; 81001; 85025; 86140; 87635; 99284; J7050; Q9967; 99282; U0002

== ENCOUNTER 2020-04-03 20:31 | Day surgery (SDC) | payer BC ==
--- NOTE | 2020-04-03 23:38 | EDM.PDOC ---
ED HPI GENERAL MEDICAL PROBLEM - General Chief Complaint: Skin Complaint Stated Complaint: BOIL/SCROTUM Time Seen by Provider: 04/03/20 23:30 Source of Information: Reports: Patient, Family, RN Notes Reviewed History Limitations: Reports: No Limitations - History of Present Illness INITIAL COMMENTS - FREE TEXT/NARRATIVE: 54-year-old gentleman presents emergency department a complaint of left scrotal swelling he states he has had a couple boils in his perineal area there is recently lanced and packed the clinic 2 days prior he was given what he believes was Rocephin for medication. Over the last 24 hours he noticed increased pain and swelling in the left scrotum no fevers Left Scrotum Pain Score (Numeric/FACES): 3 - Related Data Allergies Allergy/AdvReac Type Severity Reaction Status Date / Time codeine Allergy Seizure Verified 02/23/20 21:19 [From Tylenol-Codeine #3] Home Meds: Home Meds Amoxicillin/Clavulanate K [Augmentin 875-125 MG] 1 tab PO BID 04/03/20 [History] Past Medical History HEENT History: Reports: Impaired Vision Cardiovascular History: Reports: Heart Murmur Musculoskeletal History: Reports: Back Pain, Chronic, Fracture Other Musculoskeletal History: right arm collar bone ribs Neurological History: Reports: Head Trauma, Migraines, Seizure Dermatologic History: Reports: Cellulitis, Psoriasis, Other (See Below) Other Dermatologic History: multiple boils - Infectious Disease History Infectious Disease History: Reports: Chicken Pox - Past Surgical History GI Surgical History: Reports: Colostomy, Other (See Below) Other GI Surgeries/Procedures: colostomy takedown Dermatological Surgical History: Reports: Plastic Surgical Reconstruction/Repair Social & Family History - Family History Family Medical History: No Pertinent Family History GI: Reports: Cirrhosis Oncologic: Reports: Bone, Brain, Leukemia, Lung - Tobacco Use Tobacco Use Status *Q: Current Every Day Tobacco User Years of Tobacco use: 44 Packs/Tins Daily: 0.5 - Caffeine Use Caffeine Use: Reports: Coffee, Soda, Tea - Recreational Drug Use Recreational Drug Use: No - Living Situation & Occupation Living situation: Reports: with Significant Other Occupation: Employed ED ROS GENERAL - Review of Systems Review Of Systems: See Below Constitutional: Reports: No Symptoms Respiratory: Reports: No Symptoms GI/Abdominal: Reports: No Symptoms : Reports: Other (Left scrotal swelling and pain). Denies: Discharge, Dysuria, Flank Pain ED EXAM, SKIN/RASH Exam: See Below Text/Narrative:: Examination of the genitalia reveal an enlarged scrotum it is mildly erythematou s the left is markedly bigger than the right even the slightest palpation elicits pain there is 2 areas that are packed with packing material hanging packing material is not removed this area is also tender Exam Limited By: No Limitations General Appearance: Alert, Mild Distress Respiratory/Chest: No Respiratory Distress Course - Vital Signs Last Recorded V/S: Last Vital Signs Temp 98.3 F 04/04/20 10:55 Pulse 69 04/04/20 10:55 Resp 16 04/04/20 10:21 BP 124/70 04/04/20 10:21 Pulse Ox 97 04/04/20 10:55 - Orders/Labs/Meds Orders: Active Orders 24 hr Category Date Time Status Peripheral IV Care [RC] . DIRECTED Care 04/03/20 23:36 Active VL Duplex Abd Pel Ret Ltd [US] Stat Exams 04/04/20 01:26 Taken CULTURE ANAEROBIC [RM] Routine Lab 04/04/20 09:26 Results CULTURE ANAEROBIC [RM] Routine Lab 04/04/20 09:28 Results CULTURE WOUND + SMEAR [RM] Routine Lab 04/04/20 09:26 Results CULTURE WOUND + SMEAR [RM] Routine Lab 04/04/20 09:28 Results Lactated Ringers [Ringers, Lactated] 1,000 ml Med 04/04/20 07:15 Active IV ASDIRECTED Sodium Chloride 0.9% [Saline Flush] Med 04/03/20 23:34 Active 10 ml FLUSH ASDIRECTED PRN Peripheral IV Insertion Adult [OM.PC] Urgent Oth 04/03/20 23:34 Ordered Medication Orders Lactated Ringer's (Ringers, Lactated) 1,000 mls @ 150 mls/hr IV ASDIRECTED DONYA Last Admin: 04/04/20 07:10 Dose: 150 mls/hr Documented by: REYNOLD Sodium Chloride (Saline Flush) 10 ml FLUSH ASDIRECTED PRN PRN Reason: Keep Vein Open Last Admin: 04/04/20 01:22 Dose: 10 ml Documented by: Admin: 04/03/20 23:53 Dose: 10 ml Documented by: FELISA Labs: Laboratory Tests 04/03/20 04/03/20 04/03/20 Range/Units 23:44 23:44 23:44 WBC 14.0 H (4.5-11.0) K/uL RBC 4.78 (4.30-5.90) M/uL Hgb 14.5 (12.0-15.0) g/dL Hct 46.4 (40.0-54.0) % MCV 97 (80-98) fL MCH 30 (27-31) pg MCHC 31 L (32-36) % Plt Count 254 (150-400) K/uL Neut % (Auto) 76 H (36-66) % Lymph % (Auto) 12 L (24-44) % [place] % (Auto) 11 H (2-6) % Eos % (Auto) 1 L (2-4) % Baso % (Auto) 0 (0-1) % Sodium 139 L (140-148) mmol/L Potassium 4.0 (3.6-5.2) mmol/L Chloride 102 (100-108) mmol/L Carbon Dioxide 29 (21-32) mmol/L Anion Gap 12.0 (5.0-14.0) mmol/L BUN 7 (7-18) mg/dL Creatinine 1.0 (0.8-1.3) mg/dL Est Cr Clr Drug Dosing 87.19 mL/min Estimated GFR (MDRD) > 60 (>60) Glucose 91 (74-106) mg/dL Lactic Acid 1.0 (0.4-2.0) mmol/L Calcium 8.2 L (8.5-10.1) mg/dL Total Bilirubin 0.3 (0.2-1.0) mg/dL AST 17 (15-37) U/L ALT 23 (12-78) U/L Alkaline Phosphatase 79 (46-116) U/L Total Protein 6.9 (6.4-8.2) g/dL Albumin 3.3 L (3.4-5.0) g/dL Globulin 3.6 H (2.3-3.5) g/dL Albumin/Globulin Ratio 0.9 L (1.2-2.2) SARS-CoV-2 RNA (KISHORE) (NEGATIVE) 04/04/20 Range/Units 03:56 WBC (4.5-11.0) K/uL RBC (4.30-5.90) M/uL Hgb (12.0-15.0) g/dL Hct (40.0-54.0) % MCV (80-98) fL MCH (27-31) pg MCHC (32-36) % Plt Count (150-400) K/uL Neut % (Auto) (36-66) % Lymph % (Auto) (24-44) % [place] % (Auto) (2-6) % Eos % (Auto) (2-4) % Baso % (Auto) (0-1) % Sodium (140-148) mmol/L Potassium (3.6-5.2) mmol/L Chloride (100-108) mmol/L Carbon Dioxide (21-32) mmol/L Anion Gap (5.0-14.0) mmol/L BUN (7-18) mg/dL Creatinine (0.8-1.3) mg/dL Est Cr Clr Drug Dosing mL/min Estimated GFR (MDRD) (>60) Glucose (74-106) mg/dL Lactic Acid (0.4-2.0) mmol/L Calcium (8.5-10.1) mg/dL Total Bilirubin (0.2-1.0) mg/dL AST (15-37) U/L ALT (12-78) U/L Alkaline Phosphatase (46-116) U/L Total Protein (6.4-8.2) g/dL Albumin (3.4-5.0) g/dL Globulin (2.3-3.5) g/dL Albumin/Globulin Ratio (1.2-2.2) SARS-CoV-2 RNA (KISHORE) Negative (NEGATIVE) Meds: Medications Generic Name Dose Route Start Last Admin Trade Name Freq PRN Reason Stop Dose Admin Lactated Ringer's 1,000 mls @ 150 mls/hr 04/04/20 07:15 04/04/20 07:10 Ringers, Lactated IV 150 mls/hr ASDIRECTED DONYA Administration Sodium Chloride 10 ml 04/03/20 23:34 04/04/20 01:22 Saline Flush FLUSH 10 ml ASDIRECTED PRN Administration Keep Vein Open Discontinued Medications Generic Name Dose Route Start Last Admin Trade Name Freq PRN Reason Stop Dose Admin Bupivacaine HCl Confirm 04/04/20 07:14 04/04/20 09:39 Marcaine 0.5% Administered 04/04/20 07:15 10 ml Dose Administration 50 ml .ROUTE .STK-MED ONE Dexamethasone Confirm 04/04/20 08:20 Decadron Administered 04/04/20 08:21 Dose 4 mg .ROUTE .STK-MED ONE Fentanyl 50 mcg 04/04/20 01:18 04/04/20 01:22 Sublimaze IVPUSH 04/04/20 01:19 50 mcg ONETIME ONE Administration Fentanyl Confirm 04/04/20 08:19 Sublimaze Administered 04/04/20 08:20 Dose 250 mcg .ROUTE .STK-MED ONE Fentanyl Confirm 04/04/20 09:28 Sublimaze Administered 04/04/20 09:29 Dose 250 mcg .ROUTE .STK-MED ONE Glycopyrrolate Confirm 04/04/20 08:20 Robinul Administered 04/04/20 08:21 Dose 1 mg .ROUTE .STK-MED ONE Piperacillin Sod/Tazobactam 50 mls @ 100 mls/hr 04/04/20 02:45 04/04/20 02:56 Sod 3.375 gm/ Sodium Chloride IV 100 mls/hr ONETIME DONYA Administration Piperacillin/Tazobactam/ 50 mls @ 100 mls/hr 04/04/20 09:15 04/04/20 09:05 Dextrose 3.375 gm/ Premix IV 04/04/20 09:44 100 mls/hr ONETIME ONE Administration Lidocaine/Epinephrine Confirm 04/04/20 07:14 04/04/20 09:39 Xylocaine 1% With Epinephrine 1:100,000 Administered 04/04/20 07:15 10 ml Dose Administration 50 ml .ROUTE .STK-MED ONE Neostigmine Methylsulfate Confirm 04/04/20 08:20 Neostigmine Administered 04/04/20 08:21 Dose 5 mg .ROUTE .STK-MED ONE Ondansetron HCl Confirm 04/04/20 08:20 Zofran Administered 04/04/20 08:21 Dose 4 mg .ROUTE .STK-MED ONE Propofol Confirm 04/04/20 08:20 Diprivan 20 Ml Administered 04/04/20 08:21 Dose 200 mg .ROUTE .STK-MED ONE Rocuronium [place] Confirm 04/04/20 08:20 Zemuron Administered 04/04/20 08:21 Dose 50 mg .ROUTE .STK-MED ONE - Re-Assessments/Exams Free Text/Narrative Re-Assessment/Exam: 04/04/20 02:[address] Godfrey at 240 recommend surgical intervention with abscess drainage probably in the operating room because the hospital is red alert elected just to keep him in the emergency department until this morning when the OR crew is coming for another procedure and will do it at that time Departure - Departure Time of Disposition: 18:10 Disposition: Home, Self-Care 01 Condition: Fair Clinical Impression: Abscess - Discharge Information Sepsis Event Note (ED) - Evaluation Sepsis Screening Result: No Definite Risk - Focused Exam Vital Signs: Vital Signs Temp Temp Pulse Resp BP Pulse Ox 04/04/20 10:55 98.3 F 69 97 04/04/20 10:21 97.0 F 71 16 124/70 94 L 04/04/20 10:15 72 14 136/81 94 L 04/04/20 10:10 73 14 134/76 94 L 04/04/20 10:05 74 14 141/82 H 94 L 04/04/20 10:00 75 14 146/80 H 94 L 04/04/20 09:55 81 14 151/84 H 96 04/04/20 09:50 96.8 F L 81 14 156/82 H 97 - My Orders Last 24 Hours: My Active Orders 04/03/20 23:34 Sodium Chloride 0.9% [Saline Flush] 10 ml FLUSH ASDIRECTED PRN Peripheral IV Insertion Adult [OM.PC] Urgent 04/03/20 23:36 Peripheral IV Care [RC] . DIRECTED 04/04/20 01:26 VL Duplex Abd Pel [employer] [US] Stat - Assessment/Plan Last 24 Hours: My Active Orders 04/03/20 23:34 Sodium Chloride 0.9% [Saline Flush] 10 ml FLUSH ASDIRECTED PRN Peripheral IV Insertion Adult [OM.PC] Urgent 04/03/20 23:36 Peripheral IV Care [RC] . DIRECTED 04/04/20 01:26 VL Duplex Abd Pel Ret Ltd [US] Stat
[2020-04-03] MEDS: Sodium Chloride 0.9% 10 ML Syringe FLUSH PRN (23:53)
[2020-04-04] MEDS ORDERED: fentaNYL 100 MCG/2 ML SDV IVPUSH ONE (01:18)
[2020-04-04] MEDS: Sodium Chloride 0.9% 10 ML Syringe FLUSH PRN (01:22)
--- NOTE | 2020-04-04 01:56 | CRLUS ---
Indication: Left testicle swelling and pain Technique: Ultrasound of the scrotum and contents. Sonographic brewer-scale images were obtained with spectral and color Doppler waveform and spectral waveform analysis of the testicles. Comparison: None Findings: Right testicle measures 3.2 x 5.0 x 2.6 centimeters in shows normal blood flow. Right epididymis shows normal blood flow with small epididymal cysts, largest measuring 5 millimeters. No hydrocele. Left testicle measures 3.1 x 4.9 x 2.6 centimeters and is normal in echogenicity with normal blood flow. Left epididymis shows normal blood flow. Hypoechoic avascular collection within the left scrotal wall measuring 2.5 x 1.7 x 3.8 centimeters. Impression: 1. Unremarkable sonographic appearance of the testicles with normal bilateral testicular blood flow. 2. Hypoechoic avascular collection within the left scrotal subcutaneous tissues measuring up to 3.8 centimeters. Appearance is consistent with a complex fluid collection, differential includes abscess or evolving hematoma. Dictated by Efren Bhardwaj MD @ Apr 04 2020 1:50AM Signed by Dr. Efren Bhardwaj @ Apr 04 2020 1:55AM
[2020-04-04] MEDS ORDERED: Piperacillin/Tazobactam 3.375 GM in Sodium Chloride 0.9% 50 ML IV SCH ×2 (02:45→08:00)
[2020-04-04] MEDS ORDERED: Lidocaine 1% with EPINEPHrine 1:100,000 50 ML MDV ONE (07:14)
[2020-04-04] MEDS ORDERED: Bupivacaine 0.5% 50 ML MDV ONE (07:14)
[2020-04-04] MEDS ORDERED: Lactated Ringers 1,000 ML IV SCH (07:15)
[2020-04-04] MEDS ORDERED: fentaNYL 250 MCG/5 ML SDV ONE ×2 (08:19→09:28)
[2020-04-04] MEDS ORDERED: Rocuronium 50 MG/5 ML Vial ONE (08:20)
[2020-04-04] MEDS ORDERED: Propofol 200 MG/20 ML SDV ONE (08:20)
[2020-04-04] MEDS ORDERED: Neostigmine Methylsulfate 1 MG/ML 5 ML Syringe ONE (08:20)
[2020-04-04] MEDS ORDERED: Glycopyrrolate 0.2 MG/ML 5 ML MDV ONE (08:20)
[2020-04-04] MEDS ORDERED: Dexamethasone 4 MG/ML SDV ONE (08:20)
[2020-04-04] MEDS ORDERED: Ondansetron 4 MG/2 ML SDV ONE (08:20)
[2020-04-04] MEDS ORDERED: Piperacillin/Tazobactam/Dext 3.375 GM in Premix Bag 1 BAG IV ONE (09:15)
[2020-04-04 10:25] VITALS: BP 124/70
[2020-04-04 10:57] VITALS: PULSE 69
--- NOTE | 2020-04-05 14:15 | CRLUS ---
Final Report: Indication: Left testicle swelling and pain Technique: Ultrasound of the scrotum and contents. Sonographic brewer-scale images were obtained with spectral and color Doppler waveform and spectral waveform analysis of the testicles. Comparison: None Findings: Right testicle measures 3.2 x 5.0 x 2.6 centimeters in shows normal blood flow. Right epididymis shows normal blood flow with small epididymal cysts, largest measuring 5 millimeters. No hydrocele. Left testicle measures 3.1 x 4.9 x 2.6 centimeters and is normal in echogenicity with normal blood flow. Left epididymis shows normal blood flow. Hypoechoic avascular collection within the left scrotal wall measuring 2.5 x 1.7 x 3.8 centimeters. Impression: 1. Unremarkable sonographic appearance of the testicles with normal bilateral testicular blood flow. 2. Hypoechoic avascular collection within the left scrotal subcutaneous tissues measuring up to 3.8 centimeters. Appearance is consistent with a complex fluid collection, differential includes abscess or evolving hematoma. Dictated by Efren Bhardwaj MD @ Apr 04 2020 1:50AM Signed by: Efren Bhardwaj MD @04/04/2020 1:55:42 AM (Electronic Signature) [email or web address]
--- NOTE | 2020-04-06 08:59 | OR ---
DATE OF PROCEDURE: 04/04/2020 SURGEON: Samson Godfrey MD PREOPERATIVE DIAGNOSIS: Scrotal abscess. POSTOPERATIVE DIAGNOSIS: Large perirectal abscess with a secondary scrotal abscess. OPERATIVE PROCEDURES: 1. Scrotal and perineal exploration with incision and drainage of a perirectal abscess (23214). 2. Drainage of a scrotal abscess (87990). ANESTHESIA: General. INDICATION FOR PROCEDURE: This is a 54-year-old presenting with an abscess involving the left side of the scrotum. The plan is to proceed with incision and drainages with a general anesthetic. The patient is aware of the potential risks, including bleeding, infection, possible spreading infection, possible recurrence, and infection over time were reviewed, and he wishes to proceed. DETAILS OF PROCEDURE: The patient was taken to the operating room and placed in the supine position. After general endotracheal anesthesia was induced, he was placed in more of a frog-legged position, and the scrotal and perineal areas were then prepped and draped. The initial packing, which had been placed through a small incision and drainage procedure at the walk-in clinic last week, was removed. At that point, pressure on the scrotum resulted in some purulent drainage from the lower of these incisions, which was just above the rectum. A hemostat was then placed in the course of that, and that was then drained further. Two sets of cultures were obtained during the course of the procedure. As one extended the incision upwards over the scrotum, an elliptical incision was made over the scrotal abscess, and a portion of the skin was then from the underlying abscess cavity. As one extended downwards, the patient was noted to have a perirectal abscess as well. These were partially communicating with a small roughly 2 mm connection between the two at this point. This was then opened and additional skin overlying this incised. The perirectal abscess extended down to the submucosal level in the left anterolateral aspect of the rectal wall. There was no obvious fistula formation at this point, and it was not further probed. The remaining skin overlying the perirectal abscess in continuity with the scrotal abscess skin was then excised and the specimen delivered from the field. The area of dissection was inspected. Some bleeding points were noted and cauterized and the wound then packed open with iodoform gauze after the skin was anesthetized with 1% lidocaine mixed with Marcaine and the procedure concluded. COMPLICATIONS: There were no evident complications. DISPOSITION AND CONDITION: The patient was taken to the recovery room in satisfactory condition. Samson Godfrey MD /[id number]
== END 2020-04-04 ==
LOC: JP.ED 20:31 → JP.SDS 04-04 09:01
PROVIDERS: ATTEND Surgery
PROC: 0V95XZZ Drainage of Scrotum, External Approach (ICD-10-PCS; principal; 2020-04-04)
DX: N49.2 Inflammatory disorders of scrotum (principal); K61.1 Rectal abscess; F17.210 Nicotine dependence, cigarettes, uncomplicated; Z01.812 Encounter for preprocedural laboratory examination; Z20.828 Contact with and (suspected) exposure to other viral communicable diseases; Z88.5 Allergy status to narcotic agent; Z79.899 Other long term (current) drug therapy
CPT/HCPCS: 36415; 46040; 55100; 76870; 80053; 83605; 85025; 87070; 87075; 87077; 87186; 87205; 87635; 93976; 96374; 99284; J1100; J2405; J2543; J2704; J2710; J3010; J3490; J7050; J7120; 88304; U0002

== ENCOUNTER 2022-09-04 20:16 | Emergency (ER) | payer BC ==
[2022-09-04 20:40] VITALS: BP 149/87; PULSE 73
== END 2022-09-04 23:25 | disposition home or self-care (01) ==
LOC: JP.ED 20:16
DX: K59.09 Other constipation (principal); F17.210 Nicotine dependence, cigarettes, uncomplicated; Z88.5 Allergy status to narcotic agent
CPT/HCPCS: 36415; 74176; 80048; 85025; 86140; 99282; 99284

== ENCOUNTER 2022-09-07 07:52 | Emergency (ER) | payer BC ==
[2022-09-07] MEDS ORDERED: Ketorolac 30 MG/ML SDV IM ONE (08:49)
[2022-09-07 09:13] VITALS: BP 139/68; PULSE 58
== END 2022-09-07 10:01 | disposition home or self-care (01) ==
LOC: JP.ED 07:52
DX: R10.32 Left lower quadrant pain (principal); F17.210 Nicotine dependence, cigarettes, uncomplicated; Z88.5 Allergy status to narcotic agent; Z86.16 Personal history of COVID-19; Z93.3 Colostomy status
CPT/HCPCS: 36415; 80048; 81001; 83605; 85025; 86140; 96372; 99284; J1885

== ENCOUNTER 2022-09-21 07:02 | Day surgery (SDC) | payer BC ==
[2022-09-21] MEDS ORDERED: Sodium Chloride 0.9% 1,000 ML IV SCH (07:30)
[2022-09-21] MEDS ORDERED: Propofol 200 MG/20 ML SDV ONE ×2 (07:59→08:58)
[2022-09-21] MEDS ORDERED: fentaNYL 100 MCG/2 ML SDV ONE (07:59)
[2022-09-21] MEDS ORDERED: Midazolam 1 MG/ML 2 ML SDV ONE (07:59)
[2022-09-21 10:03] VITALS: BP 147/78; PULSE 62
== END 2022-09-21 10:13 | disposition home or self-care (01) ==
LOC: JP.SDS 07:02
PROVIDERS: ATTEND Surgery
DX: Z12.11 Encounter for screening for malignant neoplasm of colon (principal); K62.1 Rectal polyp; K63.5 Polyp of colon; K62.89 Other specified diseases of anus and rectum; G40.909 Epilepsy, unspecified, not intractable, without status epilepticus; E66.9 Obesity, unspecified; Z88.8 Allergy status to other drugs, medicaments and biological substances
CPT/HCPCS: 45385; 88305; J2250; J2704; J3010; J7030